=== PATIENT | male | born 1950 | race Caucasian/White ===

== ENCOUNTER → 2017-11-04 06:08 | Outpatient (CLI) | payer MEDICARE, SELFPAY ==
--- NOTE | 2017-11-04 06:13 | NM_ITS ---
History and Indications: Coronary disease, bypass surgery, hypertension, diabetes, hyperlipidemia and family history Procedure: Patient received a 0.4 mg of intravenous Lexiscan, resting heart rate was 65 bpm resting blood pressure 147/92, with Lexiscan maximum heart rate achieved was 98 bpm, which is less than 85% of the maximum predicted heart rate and a blood pressure was 154/96. Electrocardiogram: Resting electrocardiogram showed sinus rhythm, with Lexiscan there is less than 1.[address] segment depression from the baseline EKG. The EKG portion of the Lexiscan Myoview is nondiagnostic. Cardiac stress and resting SPECT images: Cardiac stress and rest SPECT images were obtained using technetium 99 Myoview 31.8 mCi at stress and 10.1 at rest, Gated SPECT further analysis of segmental wall motion and calculation of the ejection fraction also done. Cardiac stress and resting SPECT images show uniform myocardial activity without segmental abnormality, computer derived ejection fraction is 67% with no regional wall motion abnormality, right ventricle with normal contractility. Conclusion: 1. The EKG portion of the Lexiscan Myoview is nondiagnostic. 2. Scintigraphic evidence of reversible ischemia seen, the computer derived ejection fraction is 67% with no regional wall motion abnormality, right ventricle is normal. 3. Normal Lexiscan Myoview study.
--- NOTE | 2017-11-04 09:42 | HMH.ITSHM ---
METFORMIN LISINOPRIL SIMVASTATIN CARVEDILOL
== END ==
PROVIDERS: PCP Family Medicine; Visit Provider Internal Medicine
DX: E11.9 Type 2 diabetes mellitus without complications (principal); I11.9 Hypertensive heart disease without heart failure; I25.10 Atherosclerotic heart disease of native coronary artery without angina pectoris; R00.0 Tachycardia, unspecified
CPT/HCPCS: 78452; 93017; A9502; J2785